=== PATIENT | female | born 1955 | race Two or more races ===

== ENCOUNTER 2017-08-12 22:25 | Observation (INO) | payer OTHER ==
[~2017-08-12] VITALS: Ht 157.5 cm; Wt 55.6 kg
[~2017-08-12 22:25] MED LIST: ASPIR 8181 MG PO; ATORVASTATIN CA10 MG PO; CALAN SR240 MG PO; CLONIDINE HCL0.1 MG PO; CLOPIDOGREL75 MG PO; CRESTOR10 MG PO; FAMOTIDINE20 MG PO; GEMFIBROZIL600 MG PO; GLUCOVANCE 2.51 EACH PO; HYDROCHLOROTHIA25 MG PO; LOSARTAN POTASS25 MG PO; METOPROLOL SUCC25 MG PO; MONTELUKAST SOD10 MG PO; SERTRALINE HCL50 MG PO; SINGULAIR10 MG; TYLENOL WITH C1 EACH PO
[2017-08-12] MEDS ORDERED: NITROGLYCERIN 2% OINT 1 GM PKT TOP ONE (23:15)
[2017-08-12] MEDS ORDERED: ASPIRIN 81 MG CHEW TAB PO ONE (23:15)
[2017-08-12 23:20] LABS: BASOPHILS # (AUTO) 0.1 (0.0-0.1); BASOPHILS % 0.7 % (0.0-1.0); EOSINOPHILS # (AUTO) 0.4 (0.0-0.4); EOSINOPHILS % 4.7 % (0.0-6.0); HEMATOCRIT 35.6 % (34.2-44.1); HEMOGLOBIN 12.3 g/dL (12.0-16.0); LYMPHOCYTES # (AUTO) 2.1 (1.0-3.2); LYMPHOCYTES % 22.6 % (18.0-39.1); MEAN CORPUSCULAR HEMOGLOBIN 25.9 pg (28-32); MEAN CORPUSCULAR HGB CONC 34.6 g/dL (31-35); MEAN CORPUSCULAR VOLUME 75.1 fL (81-99); MONOCYTES # (AUTO) 0.6 (0.2-0.8); MONOCYTES % 6.6 % (4.4-11.3); PLATELET COUNT 298 x10e3/uL (140-360); RED BLOOD COUNT 4.74 x10e6/uL (3.6-5.1); RED CELL DISTRIBUTION WIDTH 13.2 % (11.7-14.4)
[2017-08-12 23:29] LABS: INR 0.95; PARTIAL THROMBOPLASTIN TIME 26.6 seconds (23.8-35.5); PROTHROMBIN TIME 11.9 seconds (11.9-14.5)
[2017-08-12 23:40] LABS: ALANINE AMINOTRANSFERASE 21 IU/L (0-55); ALBUMIN 3.9 g/dL (3.5-5.0); ALKALINE PHOSPHATASE 85 IU/L (40-150); BLOOD UREA NITROGEN 13 mg/dL (7-26); BUN/CREATININE RATIO 16 (6-25); CALCIUM 9.8 mg/dL (8.4-10.2); CARBON DIOXIDE 25 mmol/L (22-29); CHLORIDE 95 mmol/L (98-107); CREATINE KINASE 62 IU/L (29-168); CREATININE, SERUM 0.83 mg/dL (0.57-1.11); EST GLOMERULAR FILTRATION RATE > 60 ML/MIN (60-); GLUCOSE 143 mg/dL (74-118); MAGNESIUM 1.2 MG/DL (1.3-2.1); SODIUM 132 mmol/L (136-145)
--- NOTE | 2017-08-12 23:59 | Diagnostic Imaging Report ---
CHEST 2 VIEWS, Technique: CHEST 2 VIEWS Comparison: 10/25/2015 Clinical history: Chest pain DISCUSSION: Stable appearance of the heart, mediastinum, lungs and pleural spaces. Borderline cardiomegaly. IMPRESSION: No acute abnormality Signed by: Dr Lorna Kuhn MD on 08/12/2017 11:56 PM
[2017-08-13] VITALS (10 sets, daily range): BP systolic 132–151; BP diastolic 62–70
[2017-08-13] MEDS ORDERED: ENALAPRILAT IV INJ 1.25 MG/ML VIAL IV STA (00:09)
[2017-08-13] MEDS ORDERED: ONDANSETRON HCL INJ 2 MG/ML VIAL IV PRN (00:15)
[2017-08-13] MEDS ORDERED: DEXTROSE 50% SYRINGE 50 ML IV PRN (00:15)
[2017-08-13] MEDS: FAMOTIDINE 20 MG/2 ML VIAL IV SCH ×3 (00:15→21:00)
[2017-08-13] MEDS ORDERED: MORPHINE SULFATE 2 MG/ML SYR IV PRN (00:15)
[2017-08-13] MEDS ORDERED: NITROGLYCERIN 0.4 MG SUBL SL PRN ×2 (00:15→11:45)
[2017-08-13] MEDS ORDERED: FAMOTIDINE 20 MG/2 ML VIAL IV ONE (00:37)
--- OUTSIDE RECORDS SUMMARY | 2017-08-13 00:48 | XMS REPORT ---
[facility] Address Unknown Phone Unavailable Care Team Providers Care Order Packer Or Packager Name Role Phone LAURYN IRAHETA Unavailable Unavailable Problems This patient has no known problems. Allergies, Adverse Reactions, Alerts This patient has no known allergies or adverse reactions. Medications This patient has no known medications. Results Test Description Test Time Test Comments Text Results Atomic Results Result Comments CHEST 2 VIEWS [place] [address] Patient Name: YURI BURDEN MR #: [id number] : 1955 Age/Sex: 61/F Req #: [id number] Adm Physician: Ordered by: LAURYN IRAHETA MD Report #: [id number] Location: ER Room/Bed: Procedure: [id number] DX/CHEST 2 VIEWS Exam Date: 08/12/17 Exam Time: 2320 REPORT STATUS: Signed CHEST 2 VIEWS, Technique: CHEST 2 VIEWS Comparison: 10/25/2015 Clinical history: Chest pain DISCUSSION: Stable appearance of the heart, mediastinum, lungs and pleural spaces. Borderline cardiomegaly. IMPRESSION: No acute abnormality Signed by : Dr Anamaria Kuhn MD on 08/12/2017 11:56 PM Dictated By: ANAMARIA KUHN MD [id number] Transcribed By: ANGIE on 08/12/17 COPY TO: LAURYN IRAHETA MD
[2017-08-13] MEDS ORDERED: DECARA25000 UNIT PO (03:09)
[2017-08-13] MEDS ORDERED: GLYBURIDE5 MG PO (03:09)
[2017-08-13] MEDS ORDERED: NITROGLYCERIN0.4 MG SL (03:09)
[2017-08-13] MEDS ORDERED: ZOFRAN ODT4 MG PO (03:09)
[2017-08-13] MEDS ORDERED: FEXOFENADINE H180 MG PO (03:09)
[2017-08-13] MEDS ORDERED: JANUMET XR 1001 EACH PO (03:09)
[2017-08-13] MEDS: NITROGLYCERIN 2% OINT 1 GM PKT TOP SCH ×3 (06:45→16:47)
[2017-08-13] MEDS: INSULIN REGULAR, HUMAN 100 UNIT/1 ML 3ML VIAL SQ SCH ×4 (08:45→21:00)
[2017-08-13] MEDS: ASPIRIN 81 MG ENTERIC COATED PO SCH (08:48)
[2017-08-13 10:03] LABS: CREATINE KINASE 42 IU/L (29-168)
[2017-08-13 10:24] LABS: AMYLASE 66 U/L (25-125); LIPASE 75 U/L (8-78)
[2017-08-13] MEDS ORDERED: ONDANSETRON HCL 4 MG ORAL DISINTEGRATING TAB PO PRN (11:45)
[2017-08-13] MEDS ORDERED: LORATADINE 10 MG TAB PO PRN (11:45)
[2017-08-13] MEDS ORDERED: METOPROLOL SUCCINATE 25 MG TAB XL PO SCH (12:00)
[2017-08-13] MEDS: HYDROCHLOROTHIAZIDE 25 MG TAB PO SCH (12:01)
[2017-08-13] MEDS ORDERED: CLONIDINE HCL 0.1 MG TAB PO SCH (15:00)
[2017-08-13] MEDS ORDERED: ACETAMINOPHEN 325 MG TAB PO PRN (15:45)
[2017-08-13] MEDS: FAMOTIDINE 20 MG TAB PO SCH (16:47)
[2017-08-13 17:36] LABS: CREATINE KINASE 40 IU/L (29-168)
[2017-08-13 18:56] LABS: CHOL/HDL RATIO 4.8 (3.0-3.6)
[2017-08-13] MEDS ORDERED: SIMVASTATIN 20 MG TAB PO SCH (21:00)
[2017-08-13] MEDS ORDERED: MONTELUKAST SODIUM 10 MG TAB PO SCH (21:00)
[2017-08-13] MEDS: NIFEDIPINE CR 30 MG TAB PO SCH (21:00)
--- NOTE | 2017-08-13 21:08 | History and Physical ---
PRIMARY CARE PHYSICIAN: Dr. Perry Perez PALLET RECTIFIER: Dr. Dsouza CHIEF COMPLAINT: Elevated blood pressure 220/110 at home with associated left axillary region discomfort. HISTORY OF PRESENT ILLNESS: This is a 61-year-old woman who has had labile blood pressure, struggled to control it at home, now with worsening blood pressure at home with 220/110. Patient has had hypertensive retinopathy with some hemorrhage in the past and is very concerned about her blood pressure. She also has history of anxiety, has been treated with alprazolam, but due to the weight makes me feel patient has not taken any medication. PAST MEDICAL HISTORY: Diabetes mellitus type 2, hypertension, coronary artery disease status post 2 stents. PAST SURGICAL HISTORY: Cholecystectomy, stent placement, cataract surgery/hemorrhage management. ALLERGIES: PER ELECTRONIC MEDICAL RECORD. FAMILY HISTORY: Patient has history of hypertension and diabetes mellitus. SOCIAL HISTORY: Patient has 4 children. No alcohol, illicits, or cigarettes. MEDICATIONS: Per electronic medical record. REVIEW OF SYSTEMS: Denies any dizziness or fevers, chills, sweats. PHYSICAL EXAMINATION: VITAL SIGNS: Have been reviewed. GENERAL APPEARANCE: Tired-appearing woman resting in bed. HEENT: Anicteric. Pupils respond to light. No oral lesions. CARDIOVASCULAR: Normal S1 and S2. LUNGS: She has moderate breath sounds. ABDOMEN: Soft, nontender, nondistended. EXTREMITIES: No edema or calf tenderness. NEUROLOGICAL: Alert and oriented x3. Moving all extremities. SKIN: Dry. PSYCHIATRIC: Normal affect. MUSCULOSKELETAL: She has mild tenderness in the left axillary region/left back region. LABS: Reviewed. MEDICATIONS: Reviewed. ASSESSMENT AND PLAN: This is a 61-year-old woman. 1. Hypertensive emergency with vision changes. Control blood pressure will discontinue clonidine and start patient on calcium channel kalia. Will continue beta kalia. Will use and losartan. Will discontinue nitro patch and nitro gel. 2. Chest pain, which is musculoskeletal in the left axillary region, tender on palpation. 3. Diabetes mellitus, type 2. Obtain hemoglobin A1c and lipid panel. Will use diabetic diet. 4. Anxiety disorder. Patient does not want alprazolam, but she needs to be managed well. Discussed with the patient's daughter and son. They will consider psychiatry evaluation outpatient. This definitely contributes to her labile blood pressure; however, clonidine may also be a big factor in the fluctuations in the blood pressure. Will monitor overnight and reassess. 5. Hypomagnesemia. Will replace and recheck. 6. Prophylaxis. Will use Pepcid and Lovenox. 7. Disposition. Follow up laboratories. Follow up blood pressure overnight and adjust medications. Likely discharge home tomorrow morning. Job#: [id number]
[2017-08-13] MEDS ORDERED: TEMAZEPAM 15 MG CAP PO PRN (21:30)
[2017-08-14 00:22] VITALS: BP 155/66
[2017-08-14] MEDS ORDERED: TEMAZEPAM 15 MG CAP PO ONE (00:45)
[2017-08-14 04:00] VITALS: BP 157/68
[2017-08-14] MEDS ORDERED: TEMAZEPAM15 MG PO (06:01)
[2017-08-14] MEDS ORDERED: NIFEDIPINE ER30 M1 PO (06:01)
[2017-08-14] MEDS ORDERED: LOSARTAN POTASS25 MG PO (06:01)
[2017-08-14] MEDS ORDERED: METOPROLOL SUCC50 MG PO (06:01)
[2017-08-14] MEDS ORDERED: GEMFIBROZIL600 MG PO (06:04)
[2017-08-14 07:27] LABS: BASOPHILS # (AUTO) 0.1 (0.0-0.1); BASOPHILS % 0.6 % (0.0-1.0); EOSINOPHILS # (AUTO) 0.6 (0.0-0.4); EOSINOPHILS % 5.1 % (0.0-6.0); HEMATOCRIT 36.1 % (34.2-44.1); HEMOGLOBIN 12.4 g/dL (12.0-16.0); LYMPHOCYTES # (AUTO) 1.8 (1.0-3.2); LYMPHOCYTES % 16.3 % (18.0-39.1); MEAN CORPUSCULAR HEMOGLOBIN 26.1 pg (28-32); MEAN CORPUSCULAR HGB CONC 34.3 g/dL (31-35); MONOCYTES # (AUTO) 0.8 (0.2-0.8); MONOCYTES % 7.1 % (4.4-11.3); NEUTROPHILS # (AUTO) 7.8 (2.1-6.9); NEUTROPHILS % 70.5 % (38.7-80.0); PLATELET COUNT 308 x10e3/uL (140-360); RED BLOOD COUNT 4.75 x10e6/uL (3.6-5.1); RED CELL DISTRIBUTION WIDTH 13.2 % (11.7-14.4)
[2017-08-14 08:00] LABS: ALANINE AMINOTRANSFERASE 23 IU/L (0-55); ALBUMIN 3.6 g/dL (3.5-5.0); ALBUMIN/GLOBULIN RATIO 0.9 (0.8-2.0); ALKALINE PHOSPHATASE 84 IU/L (40-150); ANION GAP 13.7 mmol/L (8-16); BLOOD UREA NITROGEN 13 mg/dL (7-26); BUN/CREATININE RATIO 16 (6-25); CALCIUM 9.8 mg/dL (8.4-10.2); CARBON DIOXIDE 28 mmol/L (22-29); CHLORIDE 99 mmol/L (98-107); CHOL/HDL RATIO 4.2 (3.0-3.6); CHOLESTEROL 165 MD/DL (0-199); CREATININE, SERUM 0.82 mg/dL (0.57-1.11); EST GLOMERULAR FILTRATION RATE > 60 ML/MIN (60-); GLUCOSE 204 mg/dL (74-118); HDL CHOLESTEROL 39 MG/DL (40-60); LDL CHOLESTEROL 72 MG/DL (60-130); POTASSIUM 3.7 mmol/L (3.5-5.1); SODIUM 137 mmol/L (136-145); TRIGLYCERIDES 269 MG/DL (0-149)
[2017-08-14] MEDS ORDERED: GLYBURIDE 5 MG TAB PO SCH (08:00)
[2017-08-14] MEDS: INSULIN REGULAR, HUMAN 100 UNIT/1 ML 3ML VIAL SQ SCH (08:10)
[2017-08-14] MEDS: HYDROCHLOROTHIAZIDE 25 MG TAB PO SCH (08:55)
[2017-08-14] MEDS: ASPIRIN 81 MG ENTERIC COATED PO SCH (08:55)
[2017-08-14] MEDS: FAMOTIDINE 20 MG TAB PO SCH (08:55)
[2017-08-14] MEDS: FAMOTIDINE 20 MG/2 ML VIAL IV SCH (09:00)
[2017-08-14] MEDS ORDERED: LOSARTAN POTASSIUM 25 MG TAB PO SCH ×2 (09:00)
[2017-08-14] MEDS ORDERED: METOPROLOL SUCCINATE 25 MG TAB XL PO SCH (09:00)
[2017-08-14] MEDS ORDERED: CLOPIDOGREL BISULFATE 75 MG TAB PO SCH (09:00)
[2017-08-14] MEDS: NIFEDIPINE CR 30 MG TAB PO SCH (09:10)
[2017-08-14 09:19] VITALS: BP 124/60
[2017-08-14 10:07] VITALS: BP 122/78
[2017-08-14] MEDS ORDERED: ENOXAPARIN SOD INJ 40 MG/0.4 ML SYR SC SCH (17:00)
[2017-08-15] MEDS ORDERED: ERGOCALCIFEROL 50,000 UNIT CAP PO SCH (07:56)
[2017-08-15] MEDS ORDERED: CHOLECALCIFEROL 50000 UNIT PO SCH (09:00)
--- NOTE | 2017-08-15 09:05 | Discharge Summary ---
PRINCIPAL DIAGNOSES: 1. Hypertensive emergency with vision changes. 2. Musculoskeletal chest pain. 3. Diabetes mellitus type 2. Hemoglobin A1c 7.9, LDL 26, triglycerides 387. 4. Hypertriglyceridemia. 5. Anxiety disorder. 6. Hypomagnesemia. SECONDARY DIAGNOSIS: Diabetes mellitus type 2. CHIEF COMPLAINT: Elevated blood pressure with vision changes. HISTORY OF PRESENT ILLNESS: A 61-year-old woman developing elevated blood pressure. Please refer to the H and P for further details. HOSPITAL COURSE: Patient was found to have hypertensive emergency with vision changes. She has been on clonidine. I discontinued clonidine and adjusted medication, titrated losartan, and also treated her with calcium channel kalia and beta kalia. Patient had chest pain, which was musculoskeletal, radiating to left axillary and left back region. She had diabetes mellitus type 2, hemoglobin A1c 7.9, LDL 26, triglycerides 387. Found to have hypertriglyceridemia, started on gemfibrozil. Patient had hypomagnesemia, which was replaced. Anxiety disorder treated with temazepam at bedtime, to assist with insomnia. Patient is doing better, currently appropriate for discharge. Will follow up. DISCHARGE MEDICATIONS: Per electronic medical record. FOLLOWUP: With primary care doctor in 1 week. CONDITION ON DISCHARGE: Stable and improving. DISCHARGE LOCATION: Home. DISCHARGE INSTRUCTIONS: Avoid clonidine use. SANDRA LEOS MD Job#: [id number]
== END 2017-08-14 10:46 | disposition home or self-care (01) ==
LOC: ER 22:25 → MED/SURG 08-13 00:44
PROVIDERS: ADMIT Internal Medicine; ATTEND Internal Medicine
DX: I16.1 Hypertensive emergency (principal); R07.89 Other chest pain; I10 Essential (primary) hypertension; H35.039 Hypertensive retinopathy, unspecified eye; E11.9 Type 2 diabetes mellitus without complications; F41.9 Anxiety disorder, unspecified; E83.42 Hypomagnesemia; E78.1 Pure hyperglyceridemia
CPT/HCPCS: 36415 ×3; 71046; 80053 ×2; 80061 ×2; 82150; 82550 ×2; 82553 ×2; 82948 ×2; 83036; 83690; 83735; 83880; 84484 ×2; 85025 ×2; 85610; 85730; 93005; 99284; G0378 ×2; J2270; J2405

== ENCOUNTER 2017-11-28 22:25 | Emergency (ER) | payer OTHER ==
[~2017-11-28] VITALS: Ht 157.5 cm; Wt 54.4 kg
[~2017-11-28 22:25] MED LIST changes: +DECARA25000 UNIT PO; +FEXOFENADINE H180 MG PO; +GLYBURIDE5 MG PO; +JANUMET XR 1001 EACH PO; +METOPROLOL SUCC50 MG PO; +NIFEDIPINE ER30 M1 PO; +NITROGLYCERIN0.4 MG SL; +TEMAZEPAM15 MG PO; +ZOFRAN ODT4 MG PO
[2017-11-28] MEDS ORDERED: ALBUTEROL SULF 0.083% NEB SOLN 3 ML NEB NEB STA (22:39)
[2017-11-28] MEDS ORDERED: METHYLPREDNISOLONE SOD SUCC 125 MG/2ML VIAL IV ONE (22:45)
[2017-11-28] MEDS ORDERED: IPRATROPIUM BROMIDE 0.02% 2.5 ML NEB NEB ONE (22:45)
[2017-11-28 23:24] LABS: BASOPHILS % 0.5 % (0.0-1.0); EOSINOPHILS # (AUTO) 0.4 (0.0-0.4); EOSINOPHILS % 4.7 % (0.0-6.0); HEMOGLOBIN 10.6 g/dL (12.0-16.0); LYMPHOCYTES # (AUTO) 1.7 (1.0-3.2); MEAN CORPUSCULAR HEMOGLOBIN 26.7 pg (28-32); MEAN CORPUSCULAR HGB CONC 35.3 g/dL (31-35); MEAN CORPUSCULAR VOLUME 75.6 fL (81-99); MONOCYTES # (AUTO) 0.5 (0.2-0.8); MONOCYTES % 5.8 % (4.4-11.3); NEUTROPHILS # (AUTO) 5.6 (2.1-6.9); NEUTROPHILS % 67.6 % (38.7-80.0); PLATELET COUNT 304 x10e3/uL (140-360); RED BLOOD COUNT 3.97 x10e6/uL (3.6-5.1); RED CELL DISTRIBUTION WIDTH 13.2 % (11.7-14.4)
[2017-11-28 23:44] LABS: ALBUMIN 3.8 g/dL (3.5-5.0); ANION GAP 15.1 mmol/L (8-16); CALCIUM 9.5 mg/dL (8.4-10.2); CREATININE, SERUM 0.97 mg/dL (0.57-1.11); POTASSIUM 4.1 mmol/L (3.5-5.1)
[2017-11-28 23:52] LABS: CREATINE KINASE MB 0.6 ng/mL (0-5.0)
--- NOTE | 2017-11-29 00:27 | Diagnostic Imaging Report ---
EXAMINATION: CHEST SINGLE (PORTABLE) INDICATION: Shortness of breath COMPARISON: 08/12/2017 FINDINGS: TUBES and LINES: None. LUNGS: Lungs are not well inflated. There are bibasilar atelectasis. There is no evidence of pneumonia or pulmonary edema. PLEURA: No pleural effusion or pneumothorax. HEART AND MEDIASTINUM: The cardiomediastinal silhouette is unremarkable. BONES AND SOFT TISSUES: No acute osseous lesion. Soft tissues are unremarkable. UPPER ABDOMEN: No free air under the diaphragm. IMPRESSION: No acute thoracic abnormality. Signed by: Dr. Mart Stacy M.D. on 11/29/2017 12:24 AM
[2017-11-29 01:03] VITALS: BP 142/79
== END 2017-11-29 01:28 | disposition home or self-care (01) ==
LOC: ER 22:25
DX: J98.01 Acute bronchospasm (principal); J45.41 Moderate persistent asthma with (acute) exacerbation
CPT/HCPCS: 36415; 71045; 80053; 82550; 82553; 83880; 84484; 85025; 93005; 94645; 99284; J2930

== ENCOUNTER 2018-02-14 19:32 | Emergency (ER) | payer OTHER ==
[~2018-02-14] VITALS: Ht 157.5 cm; Wt 54.4 kg
[2018-02-14] MEDS ORDERED: ASPIRIN 81 MG CHEW TAB PO ONE (19:45)
[2018-02-14 20:37] LABS: BASOPHILS % 0.4 % (0.0-1.0); EOSINOPHILS # (AUTO) 0.2 (0.0-0.4); HEMATOCRIT 31.4 % (34.2-44.1); HEMOGLOBIN 10.4 g/dL (12.0-16.0); LYMPHOCYTES # (AUTO) 1.6 (1.0-3.2); LYMPHOCYTES % 21.8 % (18.0-39.1); MEAN CORPUSCULAR HGB CONC 33.1 g/dL (31-35); MEAN CORPUSCULAR VOLUME 78.5 fL (81-99); MONOCYTES # (AUTO) 0.5 (0.2-0.8); MONOCYTES % 7.2 % (4.4-11.3); NEUTROPHILS # (AUTO) 4.9 (2.1-6.9); NEUTROPHILS % 66.8 % (38.7-80.0); PLATELET COUNT 328 x10e3/uL (140-360); RED CELL DISTRIBUTION WIDTH 14.2 % (11.7-14.4)
[2018-02-14 20:42] LABS: INR 0.81
[2018-02-14 20:43] LABS: PARTIAL THROMBOPLASTIN TIME 28.8 seconds (23.8-35.5)
[2018-02-14 20:54] LABS: ALANINE AMINOTRANSFERASE 15 IU/L (0-55); ALBUMIN 3.8 g/dL (3.5-5.0); ALKALINE PHOSPHATASE 82 IU/L (40-150); ANION GAP 17.7 mmol/L (8-16); BLOOD UREA NITROGEN 24 mg/dL (7-26); BUN/CREATININE RATIO 20 (6-25); CALCIUM 9.8 mg/dL (8.4-10.2); CARBON DIOXIDE 18 mmol/L (22-29); CHLORIDE 103 mmol/L (98-107); CREATINE KINASE 47 IU/L (29-168); CREATININE, SERUM 1.18 mg/dL (0.57-1.11); EST GLOMERULAR FILTRATION RATE 46 ML/MIN (60-); GLUCOSE 239 mg/dL (74-118); LIPASE 127 U/L (8-78); MAGNESIUM 1.5 MG/DL (1.3-2.1); POTASSIUM 4.7 mmol/L (3.5-5.1); SODIUM 134 mmol/L (136-145)
[2018-02-14 20:55] LABS: BILIRUBIN,URINE NEGATIVE (NEGATIVE); CLARITY,URINE CLEAR (CLEAR); COLOR,URINE YELLOW (YELLOW); KETONES,URINE NEGATIVE (NEGATIVE); LEUKOCYTE ESTERASE ,URINE NEGATIVE (NEGATIVE); NITRITE,URINE NEGATIVE (NEGATIVE); PROTEIN,URINE DIPSTICK 1+ (NEGATIVE); URINE UROBILINOGEN 0.2 mg/dL (0.2 - 1)
--- NOTE | 2018-02-14 20:58 | Diagnostic Imaging Report ---
EXAMINATION: CHEST SINGLE (PORTABLE) INDICATION: Severe chest pain COMPARISON: Chest x-ray 11/29/2017 FINDINGS: AP view TUBES and LINES: None. LUNGS: Lungs are well inflated. Lungs are clear. There is mild prominence of the central pulmonary vasculature, consistent with pulmonary venous congestion. PLEURA: No pleural effusion or pneumothorax. HEART AND MEDIASTINUM: The cardiomediastinal silhouette is unremarkable. BONES AND SOFT TISSUES: No acute osseous lesion. Soft tissues are unremarkable. UPPER ABDOMEN: No free air under the diaphragm. IMPRESSION: Mild nonspecific central pulmonary venous congestion. Signed by: Dr. Carmelo Gutierrez M.D. on 02/14/2018 8:54 PM
[2018-02-14 21:04] LABS: BACTERIA,URINE FEW /HPF; EPITHELIAL CELLS,URINE FEW /LPF; RENAL EPITHELIAL CELLS,URINE FEW; WBC,URINE (MAN) 0-5 /HPF (0-5)
--- NOTE | 2018-02-14 21:07 | Diagnostic Imaging Report ---
History: Headaches Comparison studies: None Technique: Axial images were obtained from the skull base to the vertex. Coronal and sagittal reconstructions obtained from the axial data. Dose modulation, iterative reconstruction, and/or weight based adjustment of the mA/kV was utilized to reduce the radiation dose to as low as reasonably achievable. Findings: Scalp/skull: No abnormalities. No fractures, blastic or lytic lesions. Extra-axial spaces: No masses. No fluid collections. Brain sulci: Appropriate for age. Ventricles: Normal in size and configuration. No hydrocephalus. Parenchyma: Few hypodensities of the deep white matter, nonspecific. No masses, hemorrhage, acute or chronic cortical vascular insults. Sellar/suprasellar region: No abnormalities Craniocervical junction: Patent foramen magnum. No Chiari one malformation. IMPRESSION: No acute abnormalities . Few white matter hypodensities, most commonly seen with mild chronic microvascular ischemic changes Signed by: DR Nic Avina M.D. on 02/14/2018 9:04 PM
[2018-02-14 21:14] LABS: THYROID STIMULATING HORMONE 1.074 uIU/mL (0.350-4.940)
[2018-02-14 21:52] VITALS: BP 118/70
== END 2018-02-14 22:08 | disposition home or self-care (01) ==
LOC: ER 19:32
DX: G44.209 Tension-type headache, unspecified, not intractable (principal); S16.1XXA Strain of muscle, fascia and tendon at neck level, initial encounter; S29.011A Strain of muscle and tendon of front wall of thorax, initial encounter; S46.812A Strain of other muscles, fascia and tendons at shoulder and upper arm level, left arm, initial encounter; I10 Essential (primary) hypertension; E11.9 Type 2 diabetes mellitus without complications; E78.5 Hyperlipidemia, unspecified; K21.9 Gastro-esophageal reflux disease without esophagitis; J45.909 Unspecified asthma, uncomplicated; Z95.1 Presence of aortocoronary bypass graft
CPT/HCPCS: 36415; 70450; 71045; 80053; 81001; 82550; 82553; 83690; 83735; 83880; 84443; 84484; 85025; 85610; 85730; 87086; 99284